=== PATIENT | male | born 2000 | race Caucasian/White ===

== ENCOUNTER 2020-04-20 12:32 | Outpatient (CLI) | payer BC, SELFPAY ==
--- NOTE | 2020-04-20 12:42 | US_ITS ---
WS: [id number] SCROTAL ULTRASOUND EXAMINATION CLINICAL INFORMATION: SCROTAL PAIN COMPARISON: None. FINDINGS: TESTES Normal in size and echotexture, without focal lesion. Color Doppler: Normal color Doppler flow pattern. Right testes size: 3.4 cm x 2.6 cm x 2.7 cm. Left testes size: 4.4 cm x 3.0 cm x 2.1 cm. EPIDIDYMIDES Normal in size and echotexture, without focal lesion. Color Doppler: Normal color Doppler flow pattern. Right epididymis size: 1.3 cm Left epididymitis size: 1.4 cm HYDROCELE None. VARICOCELE Large left varicocele OTHER FINDINGS None. US/US scrotum [id number] IMPRESSION: 1. Large left varicocele measuring 3.0 x1.9 x 2.1 cm 2. Testicles are otherwise normal.
== END 2020-04-20 12:33 | disposition home or self-care (01) ==
LOC: RAD 12:38
PROVIDERS: PCP Nurse Practitioner Family; Visit Provider Family Medicine
DX: N50.82 Scrotal pain (principal); I86.1 Scrotal varices
CPT/HCPCS: 76870

== ENCOUNTER 2020-12-15 10:34 | Outpatient (CLI) | payer OTHER, SELFPAY ==
--- NOTE | 2020-12-15 11:03 | XRR_ITS ---
PROCEDURE INFORMATION: Exam: XR Left Hand Exam date and time: 12/15/2020 11:04 AM Age: 20 years old Clinical indication: Injury or trauma; Other: Shelf fell and cut finger; Laceration; Hand; Left; Injury date: 12/14/20; Injury details: Moved shelf, it fell and cut finger; Additional info: Laceration of thumb TECHNIQUE: Imaging protocol: XR Left hand. Views: 3 or more views. COMPARISON: No relevant prior studies available. FINDINGS: Bones/joints: No significant bone or joint abnormalities are detected. Soft tissues: There is soft tissue laceration involving the distal portion of the thumb. No radiopaque foreign bodies are seen. XR/XR hand LT 2V [id number] IMPRESSION: Soft tissue laceration of the thumb. No bony abnormality.
== END 2020-12-15 10:35 | disposition home or self-care (01) ==
LOC: RAD 11:00
PROVIDERS: PCP Nurse Practitioner Family; Visit Provider Family Medicine
DX: S61.012A Laceration without foreign body of left thumb without damage to nail, initial encounter (principal); X58.XXXA Exposure to other specified factors, initial encounter
CPT/HCPCS: 73120